=== PATIENT | male | born 1950 | race Caucasian/White ===

== ENCOUNTER → 2018-10-18 | Day surgery (SDC) | payer OTHER ==
[2018-10-16 15:41] LABS: BASOPHILS % 0.5 % (0.0-1.0); EOSINOPHILS # (AUTO) 0.1 (0.0-0.4); EOSINOPHILS % 2.2 % (0.0-6.0); HEMATOCRIT 39.1 % (38.2-49.6); HEMOGLOBIN 13.1 g/dL (14.0-18.0); LYMPHOCYTES # (AUTO) 1.7 (1.0-3.2); LYMPHOCYTES % 27.5 % (18.0-39.1); MEAN CORPUSCULAR HEMOGLOBIN 30.3 pg (28-32); MEAN CORPUSCULAR HGB CONC 33.5 g/dL (31-35); MEAN CORPUSCULAR VOLUME 90.5 fL (81-99); MONOCYTES # (AUTO) 0.7 (0.2-0.8); MONOCYTES % 11.3 % (4.4-11.3); NEUTROPHILS # (AUTO) 3.6 (2.1-6.9); NEUTROPHILS % 57.9 % (38.7-80.0); PLATELET COUNT 186 x10e3/uL (140-360); RED BLOOD COUNT 4.32 x10e6/uL (4.3-5.7); RED CELL DISTRIBUTION WIDTH 13.9 % (11.7-14.4)
[2018-10-16 15:59] LABS: INR 0.81; PROTHROMBIN TIME 11.6 seconds (11.9-14.5)
[2018-10-16 16:06] LABS: ALANINE AMINOTRANSFERASE 26 IU/L (0-55); ALBUMIN 3.8 g/dL (3.5-5.0); ALBUMIN/GLOBULIN RATIO 1.3 (0.8-2.0); ALKALINE PHOSPHATASE 72 IU/L (40-150); ANION GAP 12.6 mmol/L (8-16); BLOOD UREA NITROGEN 11 mg/dL (7-26); BUN/CREATININE RATIO 12 (6-25); CARBON DIOXIDE 28 mmol/L (22-29); CHLORIDE 107 mmol/L (98-107); CREATININE, SERUM 0.91 mg/dL (0.72-1.25); EST GLOMERULAR FILTRATION RATE > 60 ML/MIN (60-); GLUCOSE 101 mg/dL (74-118); POTASSIUM 5.6 mmol/L (3.5-5.1); SODIUM 142 mmol/L (136-145)
--- NOTE | 2018-10-16 17:05 | NUR ---
CALLED AND LEFT MESSAGE WITH DR. Rhina LOPEZ REGARDING ABNORMAL LABS.
--- NOTE | 2018-10-17 17:05 | NUR ---
Notified Dr. Pepe via phone of potassium 5.6. Dr. Pepe ordered to recheck potassium tomorrow on day of procedure. Order readback and verified.
[~2018-10-18] VITALS: Ht 185.4 cm; Wt 132.9 kg
[~2018-10-18] MED LIST: CRESTOR10 MG PO; FENTANYL CITRATE/PF 100MCG/2 ML INJ ONE; FUROSEMIDE40 MG PO; HEPARIN SOD (PORCINE) 1000 UNIT/ML 30ML ONE; HEPARIN SOD/SOD CHLORIDE 2,000 ML ONE; JANUMET XR 50-1 EAC1 PO; LEVOTHYROXINE75 MCG PO; LIDOCAINE HCL 2% LOCAL 20 ML VIAL ONE; LYRICA50 MG PO; MIDAZOLAM HCL 2 MG/2 ML VIAL ONE; PROPANOLOL PO; SODIUM CHLORIDE 0.9% 1000ML 1,000 ML ONE; VERAPAMIL HCL 2.5 MG/ML 2 ML VIAL ONE; VITAMIN D1000 UNI1 PO; Z.0.ACTOS45 MG PO; Z.0.CRESTOR20 MG PO; Z.0.LASIX40 MG PO; Z.0.SYNTHROID75 MCG PO; Z.1.KOMBIGLYZE XR1 E PO; [UNRECOGNIZED DRUG - CODE] PO; [UNRECOGNIZED DRUG - OTHER] PO
--- OUTSIDE RECORDS SUMMARY | 2018-10-18 12:37 | XMS REPORT ---
Author Author [facility] Address Unknown Phone Unavailable Care Team Providers Care Glue Spreader Name Role Phone Unavailable Unavailable Payers Payer Name Policy Type Policy Number Effective Date Expiration Date Problems This patient has no known problems. Allergies, Adverse Reactions, Alerts Allergy Name Allergy Type Status Severity Reaction(s) Onset Date Inactive Date Treating Clinician Comments Penicillins DA Active NC 2018-09-13 00:00:00 Penicillins DA Active NC 2018-09-12 00:00:00 Penicillins DA Active NC 2018-06-01 00:00:00 Penicillins DA Active NC 2018-05-31 00:00:00 Penicillins DA Active NC 2018-04-20 00:00:00 Penicillins DA Active NC 2018-04-19 00:00:00 Penicillins DA Active U 2013-01-03 00:00:00 Medications This patient has no known medications. Encounters Start Date/Time End Date/Time Encounter Type Admission Type Attending Clinicians Care Facility Care Department Encounter ID 2018-08-16 15:54:00 2018-08-16 15:54:00 Outpatient E [facility] [id number] Results Test Description Test Time Test Comments Text Results Atomic Results Result Comments - XR FLUORO FOR SPINE INJ 2018-09-13 19:08:00 Patient Name: HEATH PACKER Unit No: [id number] EXAMS: CPT CODE: [id number] XR FLUORO FOR SPINE INJ 45562 LUMBAR DISCOGRAM AND INTRADISCAL INJECTION REFERRING PHYSICIAN: None PREOPERATIVE DIAGNOSIS: Discogenic Low Back Pain POSTOPERATIVE DIAGNOSIS: Possible symptomatic degenerative L4-5 disc PROCEDURE PERFORMED: 1. Fluoroscopically guided needle localization of the L4-5 disc with provocative discography and therapeutic intradiscal injection of local anesthetic and steroid. FINDINGS: The L4-5 disc shows asymmetrical right-sided disc collapse with marked endplate osteophytosis. Aspiration was negative. Provocation was negative. Moderate diffuse annular degeneration was seen. Anesthetic response was minimal with the patient having persistent low back pain. Preinjection VAS 7/10. Postinjection VAS 6/10. Steroid response pending follow-up. ANTIBIOTIC: Clindamycin IV and intradiscal. ESTIMATED BLOOD LOSS: Minimal ANESTHESIA: TIVA COMPLICATIONS: None DETAILS OF PROCEDURE: After obtaining stable vital signs, informed consent and IV access, with no contraindications to proceeding, the patient received preoperative antibiotics and was taken to the fluoroscopy suite where the patient was placed in a prone position with all extremities padded and appropriate monitors placed. The patient was sterilely prepped and draped over the lumbosacral spine. Under fluoroscopic visualization the selected disc was visualized and the insertion right was marked for a right paravertebral approach. Using standard double needle no-touch technique, a 20 gauge spinal introducer needle was advanced to the level of the facets and a curved 25-gauge needle was then passed through the introducer and advanced into the center of the disc without paresthesias. Isovue 300 contrast 0.2 ml with Bedrcmvmd004 mg/mL 0.2 ml was then injected to produce the discogram. Bupivacaine 0.75% 0.25 mL with lidocaine 4% 0.5 ml with triamcinolone 30 mg was then injected, provocation was recorded and the needles were removed. There were no signs of intravascular or intrathecal uptake. The patient's vital signs remained stable. The patient was taken to the PACU in good condition. [facility] NAME: HEATH PACKER [address] [facility] PHYS: Landry Flores MD [place], [place] [address] : 1950 AGE: 68 SEX: M LOC: PAYAM PHONE #: [phone] EXAM DATE: 09/13/2018 STATUS: REG [facility] FAX #: [phone] RAD #: [id number] D/C DT PAGE 1 Signed Report (CONTINUED) Patient Name: HEATH PACKER Unit No: [id number] EXAMS: CPT CODE: [id number] XR FLUORO FOR SPINE INJ 70431 <Continued> at 1908 Reported and signed by: Landry Wagner M.D. CC: Landry Wagner MD Technologist: JANES SABILLON RT(R) Transcribed D/ (1907) Jayy [facility] NAME: HEATH PACKER [address] [facility] PHYS: Landry Flores MD [place] [address] : 1950 AGE: 68 SEX: M LOC: PAYAM PHONE #: [phone] EXAM DATE: 09/13/2018 STATUS: REG [facility] FAX #: [phone] RAD #: [id number] D/C DT PAGE 2 Signed Report Patient Name: HEATH PACKER Unit No: [id number] EXAMS: CPT CODE: [id number] XR FLUORO FOR SPINE INJ 11933 <Continued> Orig Print D/T: S: 09/13/2018 (1910) [facility] NAME: HEATH PACKER [address] [facility] PHYS: Landry Flores MD [place] [address] : 1950 AGE: 68 SEX: M LOC: PAYAM PHONE #: [phone] EXAM DATE: 09/13/2018 STATUS: REG [employer] FAX #: [phone] RAD #: [id number] D/C DT PAGE 3 Signed Report GLUBED 2018-09-13 09:58:00 GLUBED (test code=GLUBED) 106 mg/dL 60-125 [id number] 08:06:00* Test Item Value Reference Range Comments GLUBED (test code=GLUBED) 120 mg/dL 60-125 - XR FLUORO FOR SPINE [id number] 13:59:00 Patient Name: HEATH PACKER Unit No: [id number] EXAMS: CPT CODE: [id number] XR FLUORO FOR SPINE INJ 66236 LUMBAR DISCOGRAM AND INTRADISCAL INJECTION REFERRING PHYSICIAN: None PREOPERATIVE DIAGNOSIS: Discogenic Low Back Pain POSTOPERATIVE DIAGNOSIS: Possible partially symptomatic L4-5 disc PROCEDURE PERFORMED: 1. Fluoroscopically guided needle localization of the L4-5 disc with provocative discography and therapeutic intradiscal injection of local anesthetic and steroid. FINDINGS: Moderate annular degeneration was seen with moderate endplate osteophytosis at L4-5. Minimal loss of joint space height was seen. Provocation with injection was negative. Anesthetic response was partial with the patient noting a slight reduction of his right low back and gluteal pain. Preinjection VAS 7/10. Postinjection VAS 3-4/10. Steroid response pending follow-up. AN TIBIOTIC: Cefazolin IV and intradiscal. ESTIMATED BLOOD LOSS: M inimal ANESTHESIA: TIVA COMPLICATIONS: None DETAILS OF PROCEDURE: After obtaining stable vital signs, informed consent and IV access, with no contraindications to proceeding, t he patient received preoperative antibiotics and was taken to the fluorosc opy suite where the patient was placed in a prone position with all extrem ities padded and appropriate monitors placed. The patient was sterilely pr epped and draped over the lumbosacral spine. Under fluorosco pic visualization the selected disc was visualized and the insertion site was marked for a left paravertebral approach. Using standard double needle no-touch technique, a 20 gauge spinal introducer needle was advanced to t he level of the facets and a curved 25-gauge needle was then passed throug h the introducer and advanced into the center of the disc without paresthe pancho. Isovue 300 contrast 0.2 ml with Zbisxenvy375 mg/mL 0.2 ml wa s then injected to produce the discogram. Bupivacaine 0.75% 0.25 mL with lidocaine 4% 0.5 ml with triamcinolone 30 mg was then injected, prov ocation was recorded and the needles were removed. There were no signs of intravascular or intrathecal uptake. The patient's vital signs remained stable. The patient was taken to the PACU in good condition. [facility] NAME: HEATH PACKER [address] [facility] PHYS: Landry Flores MD [place], [place] [address] : 1950 AGE: 68 SEX: M LOC: PAYAM PHONE #: [phone] EXAM DATE: 06/01/2018 STATUS: REG [facility] FAX #: RAD #: [id number] D/C DT PAGE 1 Signed Report (CONTINUED) Patient Name: HEATH PACKER Unit No: [id number] EXAMS: CPT CODE: [id number] XR FLUORO FOR SPINE INJ 62112 <Continued> at 1359 Reported and signed by: Landry Wagner M.D. CC: Technologist: ARJUN OSUNA RT(R) Transcribed D/ (8392) [email or web address]: HEATH PACKER [address] [facility] PHYS: Landry Flores MD [place] [address] : 1950 AGE: 68 SEX: M LOC: PAYAM PHONE #: [phone] EXAM DATE: 06/01/2018 STATUS: REG [facility] FAX #: [phone] RAD #: [id number] D/C DT PAGE 2 Signed Report Patient Name: HEATH PACKER Unit No: [id number] EXAMS: CPT CODE: [id number] XR FLUORO FOR SPINE INJ 48080 <Continued> Orig Print D/T: S: 06/01/2018 (5544) [facility] NAME: HEATH PACKER [address] [facility] PHYS: Landry Flores MD [place] [address] : 1950 AGE: 68 SEX: M LOC: PAYAM PHONE #: [phone] EXAM DATE: 06/01/2018 STATUS: REG [email or web address] FAX #: [phone] RAD #: [id number] D/C DT PAGE 3 Signed Report [id number] 09:53:00* Test Item Value Reference Range Comments GLUBED (test code=GLUBED) 118 mg/dL 60-125 [id number] 09:34:00* Test Item Value Reference Range Comments GLUBED (test code=GLUBED) 113 mg/dL 60-125 - XR FLUORO FOR SPINE [id number] 16:44:00 Patient Name: HEATH PACKER Unit No: [id number] EXAMS: CPT CODE: [id number] XR FLUORO FOR SPINE INJ 87769 LUMBAR EPIRADICULAR INJECTION REFERRAL PHYSICIAN: None PREOPERATIVE DIAGNOSIS: Lumbar Radiculitis POSTOPERATIVE DIAGNOSIS: Multilevel lumbar disc degeneration with spinal stenosis and right lower extremity radicular pain PROCEDURES PERFORMED: Fluoroscopically guided needle localization of the right L3, right L4 and right L5 spinal nerves with transforaminal epidurograms and epidural injection of local anesthetic and steroid. FINDINGS: Tight flow seen through all foramen with horizontal root changes on the right at L4-5 and L5-S1. Proximal flow was very limited in the anterior epidural space and right L3-4 and L4-5 lateral recesses. Provocation with injection was negative. Anesthetic response was positive with the patient noting complete relief of his right low back and lower extremity pain. Preinjection VAS 7/10. Postinjection VAS 0/10. Steroid response pending follow-up. ESTIMATED BLOOD LOSS: Minimal ANESTHESIA: TIVA COMPLICATIONS: None DETAILS OF PROCEDURE: After obtaining stable vital signs, informed consent and IV access, with no contraindications, the patient was taken to the operating room and placed in a prone position with all extremities padded and appropriate monitors placed. The patient was sterilely prepped and draped over the lumbosacral spine. Using fluoroscopic visualization the insertion sites were marked for paravertebral approaches and using standard technique, a 25 gauge needle was advanced to the base of each pedicle w ithout paresthesias. Isovue-300 contrast 0.2 mL of was injected increment ally with frequent negative aspirations to produce each epidurogram. There were no signs of intravascular or intrathecal uptake. Bupivicaine 0.75% 0 .25 mL with lidocaine 4% 0.5 mL and Decadron 6 mg was then incrementally i njected with frequent negative aspirations and again there were no signs o f intravascular or intrathecal uptake. The needles were removed and the pa tient was taken to the PACU in good condition. Elect ronically Signed by Nancy Wagner on 04/20/19 19 at 1644 Reported and signed by: Landry Valerio M.D. CC: Technologist: Renae Burrell(Luis) Transcribe d D/ (4154) t.[email or web address] NAME: HEATH PACKER [address] [facility] PHYS: Landry Flores MD [place], [place] [address] : 1950 AGE: 68 SEX: M LOC: PAYAM PHONE #: [phone] EXAM DATE: 04/20/2018 STATUS: REG [facility] FAX #: [phone] RAD #: [id number] D/C DT PAGE 1 Signed Report Patient Name: HEATH PACKER it No: [id number] EXAMS: CP T CODE: [id number] XR FLUORO FOR SPINE INJ 56200 <Continued> Orig Print D/T: S: 04/20/2018 (1647) [facility] NAME: HEATH PACKER [address] [facility] PHYS: Landry Flores MD [place] [id number] : 1950 AGE: 68 SEX: M LOC: PAYAM PHONE #: [phone] EXAM DATE: 04/20/2018 STATUS: [facility] FAX #: [phone] RAD #: [id number] D/C DT PAGE 2 Signed Report [id number] 11:37:00* Test Item Value Reference Range Comments GLUBED (test code=GLUBED) 109 mg/dL 60-125 [id number] 09:45:00* Test Item Value Reference Range Comments GLUBED (test code=GLUBED) 112 mg/dL 60-125
[2018-10-18 14:00] VITALS: BP 136/62
--- NOTE | 2018-10-18 14:00 | NUR ---
1400pm in Rm #7 Identifierx2 , prepped for procedure. Alert oriented and appropriate, PERRLA, respirations even and unlabored to room air. Pulses x4 extremities equal and faint. Pedal pulses PT/DP weak to nonexistent and marked. Cap fill brisk < 3 sec. bilateral feet semi cool and pale. Skin warm and dry integrity appears intact in general. IV left arm #[id number] blood sent stat repeat K .Glucometer also checked per pt request(resulted K-4.2/glucose 90) started and presents healthy w/o s/s of infiltration or complaint. saline lock flushed and labeled/taped. Abdomen soft and supple. pt offered toileting, denies need to urinate or defecate. Personal affects with patient. Family at bedside Iliana ([phone]). Pt and family verbalizes understanding of POC. ds/rn 1500 update on scheduled procedure time made comfortable and glucose checked as requested .Call light at bedside ,bed in low position aware of importance to call for help. Family remain at bedside. ds/rn
--- NOTE | 2018-10-18 20:30 | NUR ---
TR band successfully removed since post procedure. VS remained in normal trends of established baseline of pt. tolerated PO fluids and nutrition. understood POC for DC and recovery. bed has been low and locked w/ call light at side. Pt meets DC criteria. right radial assessed for s/s of complication and presence of hematoma. right arm and general skin assessed and found to be warm, dry, no discolor, and pulses present. IV removed from left distal forearm. Distal tip appears intact. VS WNL. Pt denies pain, sob, or need at this time. Family at bedside and transporting pt. Review of discharge paperwork and follow up instructions. verbalized understanding. Pt to wheelchair and transported to front of hospital. Transferred to private vehicle under own strength w/o incident with DC paperwork in hand. - cgf
--- NOTE | 2018-11-13 13:18 | Operative Report ---
DATE OF PROCEDURE: 10/18/2018 SURGEON: Sujit Pepe MD CARDIAC CATHETERIZATION REPORT INDICATION FOR PROCEDURES: Chest pain. Positive for stress test. PREPROCEDURE ASSESSMENT: The risks, benefits, and alternatives of treatment were explained to the patient prior to the procedure. Informed consent was obtained as documented in the medical record. PROCEDURES PERFORMED: 1. Coronary angiography. 2. Left heart catheterization. PROCEDURE IN DETAIL: The patient was brought to the cardiac catheterization laboratory in a fasting state. Right wrist was prepped and draped in a sterile fashion. A 6-Ch[place] Slender sheath was inserted in the right radial artery using modified Seldinger technique without significant difficulty. Coronary angiography was performed using Renae radial catheter to engage both the left and the right coronary artery. Left heart catheterization was performed using a pigtail catheter. All catheters were removed over a wire. Multiple orthogonal views were taken of each coronary artery. Access site was closed using a TR band device. FINDINGS: Left main coronary artery: Large caliber, no significant CAD. LAD: Large caliber, goes to the apex, one large diagonal branch. Mild 20% plaque in the mid LAD. Left circumflex, large caliber nondominant vessel. No significant CAD. RCA: Large caliber dominant vessel, 30% plaque in the mid RCA. Left heart catheterization: LVEDP 18 mmHg. No gradient across the aortic valve. COMPLICATIONS: None. ESTIMATED BLOOD LOSS: 20 mL. GRAFTS AND IMPLANTS: None. SPECIMENS REMOVED: None. FINAL RECOMMENDATION: Continue optimal medical therapy and risk factor control. Follow up in clinic 2 weeks post procedure. Sujit Pepe MD KVP/MODL /[id number]
== END | disposition home or self-care (01) ==
LOC: CATH LAB 12:30
PROVIDERS: ATTEND Internal Medicine
DX: I25.118 Atherosclerotic heart disease of native coronary artery with other forms of angina pectoris (principal); R94.39 Abnormal result of other cardiovascular function study; I87.2 Venous insufficiency (chronic) (peripheral); E11.9 Type 2 diabetes mellitus without complications; Z88.0 Allergy status to penicillin; Z01.812 Encounter for preprocedural laboratory examination; Z79.84 Long term (current) use of oral hypoglycemic drugs; Z68.42 Body mass index [BMI] 45.0-49.9, adult; Z82.49 Family history of ischemic heart disease and other diseases of the circulatory system; Z82.3 Family history of stroke
CPT/HCPCS: 36415 ×2; 80053; 82948; 84132; 85025; 85610; 93458; C1887; J1644; J2001; J2250; J3010; J7030